=== PATIENT | female | born 1970 | race Caucasian/White ===

== ENCOUNTER 2019-12-12 16:44 | Inpatient (IN) | payer MEDICAID, SELFPAY ==
[~2019-12-12] VITALS: Ht 162.6 cm; Wt 67.6 kg
[~2019-12-12 16:44] MED LIST: CAR30 PO; HEPA500056 SQ; METO25TA PO; PANT40EC PO; PIPE1PDS26 IV; VANCOMYCIN
--- NOTE | 2019-12-12 16:44 | NUR ---
Patient BIBA CCT from [facility] - [place], [place], transferred to bed 10. RN evaluating patient at bedside.
[2019-12-12 16:50] VITALS: BP 143/76
[2019-12-12] MEDS ORDERED: cefTRIAXone 1,000 MG in DEXT 5% MINI-BAG PLUS 50 ML IV ONE (16:50)
--- NOTE | 2019-12-12 16:50 | NUR ---
Dr. Rodriguez is evaluating the patient at bedside.
[2019-12-12 16:52] VITALS: BP 143/78
--- NOTE | 2019-12-12 17:01 | NUR ---
49 y/o female biba from [facility] for abnormal labs. Per ems pt has WBC of 22.2. Afebrile, skin cool to the touch. Presents with bilateral upper extremity swelling. Trach to vent, placed on bedside monitor. medhx: DM, respiratory failure
[2019-12-12 17:25] LABS: HEMATOCRIT 27.4 % (36-48); HEMOGLOBIN 9.1 g/dL (12.0-16.0); MEAN CORPUSCULAR HEMOGLOBIN 28 pg (27-31); MEAN CORPUSCULAR HGB CONC 33 g/dL (33-37); MEAN CORPUSCULAR VOLUME 83.9 fL (80-94); PLATELET COUNT (AUTO) 605 K/uL (140-450); RED BLOOD CELL COUNT(AUTO) 3.27 MIL/uL (4.20-5.40); RED CELL DISTRIBUTION WIDTH 17.1 % (11.6-13.7); WHITE BLOOD COUNT (AUTO) 21.3 K/uL (4.8-10.8)
[2019-12-12 17:43] LABS: ALBUMIN 3.1 g/dL (3.4-5.0); ANION GAP 16.2 (8-16); CARBON DIOXIDE 26.1 mmol/L (21-32); CREATININE 0.6 mg/dL (0.6-1.3); POTASSIUM 4.3 mmol/L (3.5-5.1); TOTAL BILIRUBIN 0.5 mg/dL (0.0-1.0)
[2019-12-12] MEDS ORDERED: cefTRIAXone 1,000 MG VIAL ONE (17:48)
[2019-12-12 17:49] LABS: EOSINOPHILS % (MANUAL) 2 % (0-4); LYMPHOCYTES % (MANUAL) 12 % (20-46); MONOCYTES % (MANUAL) 2 % (5-12)
[2019-12-12] MEDS ORDERED: NACL 0.9% 1,000 ML IV ONE ×2 (17:50→18:05)
--- NOTE | 2019-12-12 17:58 | NUR ---
Pt had large green bowel movement. Diaper changed, repositioned for comfort, ornelas catheter placed. Remains on bedside monitor.
--- NOTE | 2019-12-12 17:59 | NUR ---
Rash noted to buttocks and lower and mid back, Dr Rodriguez made aware
[2019-12-12] MEDS ORDERED: NACL 0.9% 1,000 ML IV SCH (18:05)
--- NOTE | 2019-12-12 18:14 | NUR ---
Covid swab collected and taken to lab.
[2019-12-12] MEDS ORDERED: ONDANSETRON 4 MG/2 ML VIAL IM/IVP PRN (18:30)
[2019-12-12] MEDS ORDERED: LORazepam 2 MG/ML VIAL IM/IVP PRN (18:30)
[2019-12-12] MEDS ORDERED: MORPHINE SULFATE 2 MG/ML SYR IVP PRN (18:30)
[2019-12-12] MEDS ORDERED: HYDROcodone/APAP 5/325 MG 1 TAB TAB PO PRN (18:30)
[2019-12-12] MEDS ORDERED: ACETAMINOPHEN 325 MG TAB PO PRN (18:30)
[2019-12-12] MEDS ORDERED: DOCUSATE SODIUM 100 MG GELCAP PO PRN (18:30)
[2019-12-12] MEDS ORDERED: MAG SULF 2000 MG/WATER PREMIX 50 ML IV PRN (18:30)
[2019-12-12] MEDS ORDERED: POTASSIUM CHLORIDE 10 MEQ TABER PO PRN (18:30)
[2019-12-12] MEDS ORDERED: ZOLPIDEM 5 MG TAB PO PRN (18:30)
--- NOTE | 2019-12-12 19:13 | NUR ---
Report given to VLAD Corona. Transfer of care at this time
[2019-12-12 19:15] LABS: MAGNESIUM 2.1 mg/dL (1.8-2.4); PHOSPHORUS 4.8 mg/dL (2.5-4.9); THYROID STIMULATING HORMONE 1.85 uIU/mL (0.34-3.74)
--- NOTE | 2019-12-12 19:16 | NUR ---
Spoke to patients daughterMaryse. Have admitting nurse call for updates [phone]
--- NOTE | 2019-12-12 19:22 | NUR ---
received report from bonnie mg
--- NOTE | 2019-12-12 19:40 | NUR ---
PT REMAINS ON BEDSIDE MONITOR, IV FLUIDS STILL INFUSING, IV SITE PATENT, F/C DRAINING SMAILL [place] COLORED AND HAZY URINE. PT ON VENT.
--- NOTE | 2019-12-12 19:45 | NUR ---
URINE COLLECTED AND WALKED TO LAB
[2019-12-12 19:51] LABS: APPEARANCE,URINE HAZY (CLEAR); BILIRUBIN,URINE NEGATIVE (NEGATIVE); BLOOD, URINE 3+ (NEGATIVE); COLOR,URINE YELLOW (YELLOW); LEUKOCYTE ESTERASE ,URINE NEGATIVE (NEGATIVE); NITRITE, URINE NEGATIVE (NEGATIVE); PH,URINE 6.5 (5.0-9.0); UGLUCOSE NEGATIVE (NEGATIVE)
[2019-12-12 19:55] LABS: RBC,URINE 20-50 /HPF (0-5); WBC,URINE 0-5 /HPF (0-5)
--- NOTE | 2019-12-12 20:23 | NUR ---
PT RECEIVED ON SETTINGS DOCUMENTED FLOW WAS TITRATED TO 30 AND SRAVANTHI WELL VT 420-500 I:E AVG 1:2.3 AMBU AT BEDSIDE VENT PLUGGED INTO RED OUTLET WILL CONTINUE TO MONITOR
[2019-12-12] MEDS ORDERED: METOPROLOL 25 MG TAB PO SCH (21:00)
--- NOTE | 2019-12-12 21:10 | NUR ---
Patient will be admitted to care of DR MURPHY. Admited to TELE. Will go to room 123B. Belongings list completed. Report to JAN CHU.
[2019-12-12 21:15] VITALS: BP 135/95
--- NOTE | 2019-12-12 21:15 | NUR ---
RECEIVED PT AWAKE - APHASIC - TRACH TO VENT - ON VENTILATOR SET UP FROM THE ER , FROM [facility] , HX RESP. FAILURE . TRANSFER TO BED BY MANUAL LIFT W/ G TUBE FROM FACILITY , FC - INSERTED AT ER - DRAINING CLEAR U.O . IV SITE INTACT AND PATENT . ON TELE MONITOR - ST . SKIN INTACT BUT THERE IS REDNESS ON BUTTOCKS . SAFETY MEASURES IN PLACE . PLAN OF CARE DISCUSSED BUT POOR UNDERSTANDING DUE TO MENTAL STATUS . WILL CONT. TO MONITOR .
[2019-12-12] MEDS: NACL 0.9% 1,000 ML IV SCH (21:37)
--- NOTE | 2019-12-12 22:09 | NUR ---
LOPRESSOR 25/MG GIVEN THRU G TUBE ORDERED
[2019-12-12] MEDS: TRIAMCINOLONE 0.1% CRM 15 GM TUBE TP SCH (22:30)
--- NOTE | 2019-12-13 | NUR ---
MADE ROUNDS , NO S/SX OF ACUTE DISTRESS NOTED - ON TELE MONITOR - ST , BUT PT. APPEARS COMFORTABLY ON BED - FLACC O . WILL CONT. TO MONITOR .
[2019-12-13] MEDS ORDERED: HYDROcodone/APAP 5/325 MG 1 TAB TAB GT PRN (00:55)
--- NOTE | 2019-12-13 01:00 | NUR ---
RESUME G TUBE FEEDING - PER RECORD THE PT BEED ON ISO SOURCE 1.5 BUT THE NURSE CASH APPLICATIONS ANALYST GAVE TO OSMOLITE 1.5 ACCORDING TO HIM IT IS THE SAME ISO SOURCE - I BEGINS THE FEEDING TO 20 CC/HR - THEN ASSESS THE RESIDUE - THEN WILL INC. UNTIL IT REACH TO 60 CC/HR - IF WELL TOLERATED .
[2019-12-13] MEDS ORDERED: ZOLPIDEM 5 MG TAB GT PRN (01:05)
[2019-12-13] MEDS ORDERED: ACETAMINOPHEN 650 MG/20.3 ML UDC GT PRN (01:05)
[2019-12-13] MEDS ORDERED: POTASSIUM CHLORIDE 20% 40 MEQ/15 ML UDC GT PRN (01:40)
[2019-12-13] MEDS ORDERED: DOCUSATE 100 MG/10 ML UDC GT PRN (01:45)
--- NOTE | 2019-12-13 02:00 | NUR ---
SLEEPING - NO S/SX OF ACUTE DISTRESS NOTED - O2 SAT 99 %
[2019-12-13 04:00] VITALS: BP 145/78
--- NOTE | 2019-12-13 04:00 | NUR ---
MADE ROUNDS , THE TELEGRAPH EQUIPMENT MAINTAINER - ACCIDENTALLY PULL OUT THE FC - PT FC IS STILL IN PLACE . WILL CONT. TO MONITOR - OFF LOAD PRESSURE AREAS - TURN PT. ACCORDING TO PROTOCOL . WILL CONT. TO MONITOR.
[2019-12-13] MEDS: BLOOD GLUCOSE MONITORING 1 DEV DEV FS SCH ×6 (04:38→23:56)
[2019-12-13 05:10] LABS: BASOPHILS # (AUTO) 0.1 K/uL (0.00-0.22); BASOPHILS % (AUTO) 0.8 % (0.0-2.0); EOSINOPHILS # (AUTO) 0.5 K/uL (0-0.4); HEMATOCRIT 24.8 % (36-48); HEMOGLOBIN 8.2 g/dL (12.0-16.0); LYMPHOCYTES # (AUTO) 3.4 K/uL (2.5-16.5); LYMPHOCYTES % (AUTO) 20.9 % (20.5-51.1); MEAN CORPUSCULAR HEMOGLOBIN 28 pg (27-31); MEAN CORPUSCULAR HGB CONC 33 g/dL (33-37); MEAN CORPUSCULAR VOLUME 85.6 fL (80-94); MONOCYTES # (AUTO) 0.8 K/uL (0.8-1.0); MONOCYTES % (AUTO) 5.3 % (1.7-9.3); NEUTROPHILS # (AUTO) 11.3 K/uL (1.8-7.7); PLATELET COUNT (AUTO) 515 K/uL (140-450); RED CELL DISTRIBUTION WIDTH 16.7 % (11.6-13.7); WHITE BLOOD COUNT (AUTO) 16.1 K/uL (4.8-10.8)
[2019-12-13 05:22] LABS: ANION GAP 15.3 (8-16); CARBON DIOXIDE 24.6 mmol/L (21-32); CREATININE 0.4 mg/dL (0.6-1.3); POTASSIUM 3.9 mmol/L (3.5-5.1)
[2019-12-13 05:31] LABS: CHOL/HDL RATIO 5.8 (1-4.5); MAGNESIUM 1.8 mg/dL (1.8-2.4)
[2019-12-13] MEDS: NACL 0.9% 1,000 ML IV SCH ×3 (06:55→22:59)
[2019-12-13 07:17] VITALS: BP 141/63
--- NOTE | 2019-12-13 07:17 | NUR ---
REC'D PT ON [place]ES[place]E VENT SETTINGS AC 20 VT 350 PEEP 6 FIO2 28% ALARMS ON AND AUDIBLE AND BVM AT HOB AND VENT IS PLUGGED INTO RED OUTLET, SXN PT SMALL AMT OF YELLOW SECRETIONS, B\S ARE DIMINISHED BILATERALLY, PT IS TRACH WITH A SHILEY XLT 8 AND PT IS SLEEPING WITH NO SIGNS OF DISTRESS NOTED AT THIS TIME
--- NOTE | 2019-12-13 07:22 | NUR ---
ENDORSED TO AM SHIFT - PT -STABLE . G TUBE FEEDING - TOLERATED .
[2019-12-13 08:00] VITALS: BP 164/89
--- NOTE | 2019-12-13 08:54 | NUR ---
PATIENT HAS BEEN SCREENED AND CATEGORIZED HIGH NUTRITION RISK. PATIENT WILL BE SEEN WITHIN 1-2 DAYS OF ADMISSION. 12/13/19-12/14/[address]
[2019-12-13] MEDS ORDERED: AZITHROMYCIN 250 MG TAB PO SCH (09:00)
[2019-12-13] MEDS ORDERED: AZITHROMYCIN 250 MG TAB GT SCH (09:00)
[2019-12-13] MEDS ORDERED: DILTIAZEM 30 MG TAB PO SCH (09:00)
[2019-12-13] MEDS ORDERED: PANTOPRAZOLE 40 MG TABEC PO SCH (09:00)
[2019-12-13] MEDS: DILTIAZEM 30 MG TAB GT SCH ×3 (10:21→17:57)
[2019-12-13] MEDS: LANSOPRAZOLE 30 MG CAPDR GT SCH (10:22)
[2019-12-13] MEDS: METOPROLOL 25 MG TAB GT SCH ×2 (10:22→20:45)
[2019-12-13] MEDS: TRIAMCINOLONE 0.1% CRM 15 GM TUBE TP SCH ×2 (10:55→20:45)
--- NOTE | 2019-12-13 10:57 | NUR ---
ADMINISTERED SCHEDULED MEDS PER MD ORDER. MEDS ADMINISTERED VIA GTUBE. 40 ML RESIDUALS GIVEN BACK. PATIENT TOLERATED MEDICATION ADMINISTRATION. MEDICATION EDUCATION PROVIDED. REINFORCEMENT NEEDED. SAFETY MEASURES IN PLACE. WILL CONT TO MONITOR.
--- NOTE | 2019-12-13 11:18 | NUR ---
DC PLANNIN YRS OLD FEMALE PATIENT WAS ADMITTED FROM [facility] WITH A DX OF SIRES &CHRONIC RESPIRATORY FAILURE. PT HAS A HX OF ASTHMA, DM CRF, HYPOXIC BRAIN INJURY. CXR SHOWED MILD INTERSTITIAL EDEMA VERSUS INFILTRATE. RAPID COVID TEST NEGATIVE. URINE AND BLOOD CULTURE PENDING. ADMINISTERED IVF, ROCEPHIN AND AZITHROMYCIN IV ABX AND CONTINUED HOME MEDS. CONSULTED WITH PULWILL AND JACQUE. DC PLAN TO GO BACK TO [facility] WHEN STABLE CM TO FOLLOW Addendum: 12/14/19 at 1032 by Hanane Beltran CM DC CLINICAL LABORATORY AIDES TEACHER: PLAN FOR PATIENT TO DC THURSDAY OR THURSDAY. FAXED PATIENTS CLINICALS TO [facility]. WILL FOLLOW UP FOR A BED NUMBER. Addendum: 12/14/19 at 1109 by Ana Beaver CM DC PLANNING: SEEN BY ROBERT AND JACQUE. DR FONTENOT CHANGED ABX TO ZOSYN AND TAZOBACTAM ,AWAITING FOR SPUTUM, BLOOD AND URINE CULTURE. DC PLAN TO GO BACK TO [facility] WHEN STABLE Addendum: 12/14/19 at 1426 by Hanane Beltran CM [facility] CLINICAL LABORATORY AIDES TEACHER: RECEIVED A CALL FROM SAMREEN FROM [facility]. PATIENT IS ABLE TO RETURN HOWEVER THEY ARE WORKING ON ROOM CHANGES AT THIS TIME AND WILL HOPEFULLY HAVE AN AVAILABLE BED BY TOMORROW. WILL FOLLOW UP IN THE MORNING Addendum: 12/16/19 at 1108 by Hanane Beltran CM [facility] CLINICAL LABORATORY AIDES TEACHER: PATIENT WILL BE DISCHARGING BACK TO [facility] TODAY. SET UP TRANSPORTATION WITH [facility] FOR 2:00 PM. NOTIFIED VLAD WALLS. [facility] [address], [place] [id number] [address] CHUN Addendum: 12/16/19 at 1110 by Hanane Beltran CM [facility] CLINICAL LABORATORY AIDES TEACHER: NOTIFIED PATIENTS DAUGHTER JUNIOR SOTO [phone] THAT PATIENT WILL BE DISCHARGED TODAY.
[2019-12-13 12:00] VITALS: BP 108/82
--- NOTE | 2019-12-13 12:00 | NUR ---
PT BLOOD SUGAR IS 123. NO INSULIN NEEDED AT THIS TIME. WILL CONTINUE TO MONITOR
--- NOTE | 2019-12-13 13:30 | NUR ---
TOOK PATIENT TO CT WITH RT AND POST ADOPTION COORDINATOR AT BEDSIDE. RETURNED BACK SAFELY. PT TOLERATED WELL. SAFETY MEASURES IN PLACE. WILL CONTINUE TO MONITOR
--- NOTE | 2019-12-13 14:02 | NUR ---
ADMINISTERED SCHED MED PRESCRIBED PER MD ORDER. PT TOLERATED WELL. MEDICATION EDUCATION. PT APHASIC AND UNABLE TO VERBALIZE UNDERSTANDING. SAFETY MEASURES IN PLACE. WILL CONTINUE TO MONITOR
--- NOTE | 2019-12-13 14:28 | NUR ---
OBTAINED OCCULT BLOOD SPECIMEN FROM PATIENT PER STAT MD ORDER AND SENT TO LAB. SAFETY MEASURES IN PLACE. WILL CONT TO MONITOR.
--- NOTE | 2019-12-13 14:54 | NUR ---
RECOMMENDED TO DR. MURPHY TO CHANGE TUBE FEEDING TO OSMOLITE 1.5 @ 45 ML/HR WITH PROSOURCE. DR. MURPHY APPROVED RECOMMENDATION.
--- NOTE | 2019-12-13 15:04 | NUR ---
12/13/19 RD INITIAL ASSESSMENT COMPLETED PLEASE REFER TO NUTRITION ASSESSMENT UNDER CARE ACTIVITY FOR ESTIMATED NUTRITIONAL NEEDS. 1. RECOMMEND OSMOLITE 1.5 @ 45 ML/HR X 24 HR WITH PROSOURCE BID -THIS WILL PROVIDE 1740 KCAL AND 97 GM OF PROTEIN, WHICH MEETS 100% OF ESTIMATED KCAL AND PROTEIN NEEDS. 2. RECOMMEND FREE WATER FLUSH OF [address] TO FOLLOW-UP 2-3 DAYS, HIGH RISK ELIZ PLATA RD
[2019-12-13 16:00] VITALS: BP 131/68
--- NOTE | 2019-12-13 16:00 | NUR ---
PT BLOOD SUGAR IS 96. NO INSULIN NEEDED AT THIS TIME. WILL CONTINUE TO MONITOR
--- NOTE | 2019-12-13 16:14 | NUR ---
PATIENT HAD BM, WAS CLEANED, DRIED AND TURNED FROM LEFT SIDE TO RIGHT SIDE. PATIENT TOLERATED TX WELL. SAFETY MEASURES IN PLACE. WILL CONT TO MONITOR.
--- NOTE | 2019-12-13 16:26 | NUR ---
PATIENT FAMILY AT WINDOW VISITING PATIENT. PT TOLERATED WELL. SAFETY MEASURES IN PLACE. WILL CONTINUE TO MONITOR
--- NOTE | 2019-12-13 18:20 | NUR ---
ADMINISTERED MEDS PRESCRIBED BY MD ORDER. PATIENT TOLERATED WELL. SAFETY MEASURES IN PLACE. WILL CONT TO MONITOR.
--- NOTE | 2019-12-13 19:16 | NUR ---
ENDORSED AT BEDSIDE FOR CONTINUITY OF CARE. PT IS STABLE
--- NOTE | 2019-12-13 19:16 | NUR ---
RECEIVED PT AWAKE - TRACH TO VENT - O2 SAT 100 % , ON TELE MONITOR - ST , HOT TO TOUCH - WILL RE CHECK THE TEMP , W/ URINE MARIA CATH CONNECTING TO URINE BAG - CLEAR U.O . W/ REDNESS ON THE MIDDLE OF L AND R BUTTOCKS - BUT THE SKIN IS STILL INTACT . ON G TUBE FEEDING - WELL TOLERATED - SOFT ABD. SAFETY MEASURES IN PLACE . PLAN OF CARE DISCUSSED BUT POOR UNDERSTANDING DUE TO MENTAL STATUS . WILL CONT. TO MONITOR .
[2019-12-13 20:00] VITALS: BP 146/76
[2019-12-13] MEDS ORDERED: PIPERACILLIN/TAZOBACTAM 3.375 GM VIAL IV ONE (23:06)
[2019-12-13] MEDS: PIPERACILLIN/TAZOBACTAM 3.375 GM in DEXTROSE 5% 50 ML IV SCH (23:12)
[2019-12-14] VITALS (7 sets, daily range): BP systolic 134–171; BP diastolic 64–92
--- NOTE | 2019-12-14 | NUR ---
MADE ROUNDS , O2 SAT 100 % - FEVER ALREADY SUBSIDED , BUT THE PT. STILL TACHCARDIC , W/ AN EPISODE OF OF UP AND DOWN IN THE HR EVENTHOUGH PT. APPEARS CALM ON BED . WITH AN OCASSIONALLY PT HAD 90'S ON V/S MACHINE WHILE IN THE TELE MONITOR - ST TRACING , AND THE RR FLACTUATING TO 20'2 TO 30 HIGHEST IS 33 AND THE LOWEST IS 18 - BUT O2 SAT REMAINS 100 % . WILL INFORM DR. MG .
--- NOTE | 2019-12-14 00:30 | NUR ---
DR. MG TEXT BACK - HE SAID JUST MONITOR - NO FURTHER ORDER MADE . WILL CONT. TO MONITOR .
--- NOTE | 2019-12-14 02:00 | NUR ---
MADE ROUNDS , - ON TELE MONITOR - ST - O2 SAT 100 % . WILL CONT. TO MONITOR .
[2019-12-14] MEDS ORDERED: PIPERACILLIN/TAZOBACTAM 3.375 GM VIAL IV ONE (03:50)
[2019-12-14] MEDS ORDERED: CRUSHER, PILL MC ONE (03:54)
--- NOTE | 2019-12-14 04:00 | NUR ---
HAS MILD FEVER - TSB - WILL UPDAT DR. MG AND DR. FONTENOT . O2 SAT 100 %
[2019-12-14] MEDS: BLOOD GLUCOSE MONITORING 1 DEV DEV FS SCH ×5 (04:22→20:00)
[2019-12-14] MEDS: NACL 0.9% 1,000 ML IV SCH ×2 (04:50→16:35)
[2019-12-14 05:07] LABS: BASOPHILS # (AUTO) 0.1 K/uL (0.00-0.22); EOSINOPHILS # (AUTO) 0.9 K/uL (0-0.4); EOSINOPHILS % (AUTO) 7.6 % (0.0-4.0); HEMATOCRIT 21.1 % (36-48); LYMPHOCYTES # (AUTO) 2.6 K/uL (2.5-16.5); LYMPHOCYTES % (AUTO) 21.7 % (20.5-51.1); MEAN CORPUSCULAR HEMOGLOBIN 29 pg (27-31); MEAN CORPUSCULAR HGB CONC 33 g/dL (33-37); MEAN CORPUSCULAR VOLUME 85.8 fL (80-94); MONOCYTES # (AUTO) 0.8 K/uL (0.8-1.0); MONOCYTES % (AUTO) 6.5 % (1.7-9.3); NEUTROPHILS # (AUTO) 7.4 K/uL (1.8-7.7); NEUTROPHILS % (AUTO) 63.2 % (42.2-75.2); PLATELET COUNT (AUTO) 444 K/uL (140-450); RED BLOOD CELL COUNT(AUTO) 2.45 MIL/uL (4.20-5.40); RED CELL DISTRIBUTION WIDTH 16.1 % (11.6-13.7); WHITE BLOOD COUNT (AUTO) 11.8 K/uL (4.8-10.8)
[2019-12-14] MEDS: PIPERACILLIN/TAZOBACTAM 3.375 GM in DEXTROSE 5% 50 ML IV SCH ×3 (05:17→16:35)
[2019-12-14 05:35] LABS: ANION GAP 14.1 (8-16); CARBON DIOXIDE 23.6 mmol/L (21-32); CREATININE 0.5 mg/dL (0.6-1.3); POTASSIUM 3.7 mmol/L (3.5-5.1)
--- NOTE | 2019-12-14 05:36 | NUR ---
REFER TO DR. MG - LATEST HGB. 7 - BP 134/76 - HR 100'S , W/ MILD FEVER , W/ CLAER U.O - WILL WAIT FURTHER ORDER ..
[2019-12-14 05:40] LABS: MAGNESIUM 1.6 mg/dL (1.8-2.4); PHOSPHORUS 4.1 mg/dL (2.5-4.9)
--- NOTE | 2019-12-14 07:31 | NUR ---
ASSUMED CARE AND REC'D REPORT FROM NIGHT NURSE. PT ON TRACH TO VENT CARE.
--- NOTE | 2019-12-14 07:35 | NUR ---
ENDORSED TO AM SHIFT - PT - STABLE . ENDORSE TO NURSE BROOKLYNN I TEXTED DR. MG ABOUT THE HGB . OF 7 - SHE HAVE TO WAIT FURTHER ORDERS FROM DR. MG . FF UP FLU VACCINE FROM [facility] - ENDORSED .
--- NOTE | 2019-12-14 08:00 | NUR ---
BLOOD GLUCOSE 108- NO INSULIN COVERAGE NEEDED. CALL LIGHT WITHIN REACH. NO S/S OF RESPIRATORY DISTRESS OR DISCOMFORT NOTED AT THIS TIME. WILL CONTINUE TO MONITOR.
[2019-12-14 08:12] LABS: T4 (THYROXINE) 8.9 ug/dL (4.5-12.0)
[2019-12-14] MEDS: DILTIAZEM 30 MG TAB GT SCH ×3 (08:56→16:35)
[2019-12-14] MEDS: LANSOPRAZOLE 30 MG CAPDR GT SCH (08:56)
[2019-12-14] MEDS: METOPROLOL 25 MG TAB GT SCH ×2 (08:56→21:10)
--- NOTE | 2019-12-14 08:58 | NUR ---
ZERO RESIDUAL ON G-TUBE FEEDING. SCHEDULED MEDICATIONS GIVEN AND TOLERATED WELL. CALL LIGHT WITHIN REACH. NO S/S OF RESPIRATORY DISTRESS OR DISCOMFORT NOTED AT THIS TIME. WILL CONTINUE TO MONITOR.
[2019-12-14] MEDS: TRIAMCINOLONE 0.1% CRM 15 GM TUBE TP SCH ×2 (08:59→21:16)
[2019-12-14 09:07] LABS: FOLIC ACID 9.4 ng/mL (>3.0)
--- NOTE | 2019-12-14 10:28 | NUR ---
MAGNESIUM 1.6- MAG RIDDER GIVEN AND TOLERATED WELL. CALL LIGHT WITHIN REACH. NO S/S OF RESPIRATORY DISTRESS OR DISCOMFORT NOTED AT THIS TIME. WILL CONTINUE TO MONITOR.
--- NOTE | 2019-12-14 11:00 | NUR ---
PT SLEEPING IN BED. CALL LIGHT WITHIN REACH. NO S/S OF RESPIRATORY DISTRESS OR DISCOMFORT NOTED AT THIS TIME. WILL CONTINUE TO MONITOR.
--- NOTE | 2019-12-14 12:25 | NUR ---
BLOOD GLUCOSE 104-NO INSULIN COVERAGE GIVEN. SCHEDULED MEDICATION ZOSYN GIVEN AND TOLERATED WELL. CALL LIGHT WITHIN REACH. NO S/S OF RESPIRATORY DISTRESS OR DISCOMFORT NOTED AT THIS TIME. WILL CONTINUE TO MONITOR.
--- NOTE | 2019-12-14 12:53 | NUR ---
SCHEDULED MEDICATION CARDIZEM GIVEN AND TOLERATED WELL. CALL LIGHT WITHIN REACH. NO S/S OF RESPIRATORY DISTRESS OR DISCOMFORT NOTED AT THIS TIME. WILL CONTINUE TO MONITOR.
--- NOTE | 2019-12-14 15:00 | NUR ---
PT SLEEPING IN BED. CALL LIGHT WITHIN REACH. NO S/S OF RESPIRATORY DISTRESS OR DISCOMFORT NOTED AT THIS TIME. WILL CONTINUE TO MONITOR.
--- NOTE | 2019-12-14 16:00 | NUR ---
BLOOD GLUCOSE 106- NO INSULIN COVERAGE GIVEN. PT TOLERATED WELL. CALL LIGHT WITHIN REACH. NO S/S OF RESPIRATORY DISTRESS OR DISCOMFORT NOTED AT THIS TIME. WILL CONTINUE TO MONITOR.
--- NOTE | 2019-12-14 16:30 | NUR ---
PT WAS ROTATED TO SUPINE. FINGER STICK GLUCOSE LEVEL CHECKED. PT RESTING
--- NOTE | 2019-12-14 16:35 | NUR ---
SCHEDULED MEDICATION CARDIZEM AND ZOSYN GIVEN AND TOLERATED WELL. CALL LIGHT WITHIN REACH. NO S/S OF RESPIRATORY DISTRESS OR DISCOMFORT NOTED AT THIS TIME. WILL CONTINUE TO MONITOR.
--- NOTE | 2019-12-14 18:40 | NUR ---
NEW TUBE FEEDING HUNG AND PT TOLERATED WELL. CALL LIGHT WITHIN REACH. NO S/S OF RESPIRATORY DISTRESS OR DISCOMFORT NOTED AT THIS TIME. WILL CONTINUE TO MONITOR.
--- NOTE | 2019-12-14 19:04 | NUR ---
RECEIVED REPORT FROM AM SHIFT. PT SEEN AND ASSESSED. PT IS TRACH TO VENT WITH SHILEY SIZE 8 XLT AND SECURED WITH TRACH TIE. PT IS ON VENT SETTINGS AC/VC RR 20bpm, Vt 350cc, PEEP 6 cmH20, AND FiO2 28% WITH SPO2 OF 100%. VENT IS PLUGGED IN RED OUTLET AND VENT ALARMS SET AND AUDIBLE TO ENVIRONMENT. AUSCULTATION REVEALS BILATERAL RALES BREATH SOUNDS. SUCTIONED SCANT AMOUNT OF WHITE SECRETIONS FROM TRACH TUBE. AIRWAY IS PATENT. PT IS IN NO APPARENT RESPIRATORY DISTRESS AT THIS TIME. WILL CONTINUE TO MONITOR PT.
--- NOTE | 2019-12-14 19:24 | NUR ---
ENDORSED PT CARE TO SHIPBOARD INTELLIGENCE ANALYST NURSE. PT IN STABLE CONDITION AT THIS TIME.
--- NOTE | 2019-12-14 19:25 | NUR ---
RECEIVED BEDSIDE REPORT FROM AM NURSE. PT TRACH TO VENT. TOLERATING VENT SETTINGS WELL A/C VC FIO2 28%, VT 350, RATE 20, PEEP 6. O2 SAT 97%. PT REMAINS IN STABLE CONDITION, NO ACUTE DISTRESS, NO SOB NOTED, RESPIRATIONS EVEN AND UNLABORED. NO S/S OF PAIN AND DISCOMFORT AT THIS TIME. IV SITE PATENT AND FLUSHED L HAND RUNNING NS @100CC/HR. GTUBE IN PLACED W/ ENTERAL FEEDING OF OSMOLITE 1.5 @45CC/HR, FREE WATER FLUSHING OF 150 CC Q4H. MARIA CATH IN PLACED, DRAINING CLEAR YELLOW URINE. BED IN LOWEST POSITION. SIDE RAILS UPX2. SAFETY MEASURES IN PLACED. CALL LIGHT WITHIN REACH. WILL CONTINUE TO MONITOR.
--- NOTE | 2019-12-14 20:00 | NUR ---
CHECKED BLOOD GLUCOSE, 102 MG/DL NO INSULIN COVERAGE NEEDED.
--- NOTE | 2019-12-14 21:16 | NUR ---
DUE MEDS GIVEN, TOLERATED WELL. GTUBE INTACT AND PATENT, NO RESIDUALS NOTED. TOLERATING FEEDING WELL.
--- NOTE | 2019-12-14 23:16 | NUR ---
CHECKED ON PT, SLEEPING COMFORTABLY IN BED. ORAL CARE DONE AND SUCTIONED SECRETIONS,TOLERATED WELL.
[2019-12-15] VITALS: BP 138/73
--- NOTE | 2019-12-15 00:16 | NUR ---
BLOOD SUGAR CHECKED- 115MG/DL. VS STABLE. NOTED TEMP OF 99.5, COOLING MEASURES DONE. SAFETY MEASURES IN PLACED. WILL CONTINUE TO MONITOR.
[2019-12-15] MEDS: PIPERACILLIN/TAZOBACTAM 3.375 GM in DEXTROSE 5% 50 ML IV SCH ×4 (00:50→18:00)
[2019-12-15] MEDS: BLOOD GLUCOSE MONITORING 1 DEV DEV FS SCH ×6 (00:55→20:49)
--- NOTE | 2019-12-15 02:16 | NUR ---
PT SLEEPING COMFORTABLY IN BED, NO ACUTE DISTRESS, NO SOB NOTED. VENT SETTINGS TOLERATED WELL, SATTING 100%. BED IN LOWEST POSITION. SAFETY MEASURES IN PLACED. CALL LIGHT WITHIN REACH. WILL CONTINUE TO MONITOR.
[2019-12-15 04:00] VITALS: BP 132/75
--- NOTE | 2019-12-15 04:16 | NUR ---
VS WITHIN NORMAL LIMITS. NOTED TEMP OF 99.3 F, COOLING MEASURES DONE. BS CHECKED 101 MG/DL, NO INSULIN COVERAGE NEEDED. SAFETY MEASURES IN PLACED. CALL LIGHT WITHIN REACH. WILL CONTINUE TO MONITOR.
[2019-12-15 04:57] LABS: BASOPHILS # (AUTO) 0.2 K/uL (0.00-0.22); BASOPHILS % (AUTO) 1.3 % (0.0-2.0); EOSINOPHILS # (AUTO) 1.4 K/uL (0-0.4); EOSINOPHILS % (AUTO) 11.2 % (0.0-4.0); HEMATOCRIT 23.1 % (36-48); HEMOGLOBIN 7.5 g/dL (12.0-16.0); LYMPHOCYTES # (AUTO) 2.4 K/uL (2.5-16.5); LYMPHOCYTES % (AUTO) 19.7 % (20.5-51.1); MEAN CORPUSCULAR HEMOGLOBIN 28 pg (27-31); MEAN CORPUSCULAR HGB CONC 33 g/dL (33-37); MEAN CORPUSCULAR VOLUME 85.1 fL (80-94); MONOCYTES # (AUTO) 0.7 K/uL (0.8-1.0); MONOCYTES % (AUTO) 5.4 % (1.7-9.3); NEUTROPHILS # (AUTO) 7.7 K/uL (1.8-7.7); NEUTROPHILS % (AUTO) 62.4 % (42.2-75.2); PLATELET COUNT (AUTO) 497 K/uL (140-450); RED BLOOD CELL COUNT(AUTO) 2.71 MIL/uL (4.20-5.40); RED CELL DISTRIBUTION WIDTH 16.5 % (11.6-13.7); WHITE BLOOD COUNT (AUTO) 12.3 K/uL (4.8-10.8)
[2019-12-15] MEDS: NACL 0.9% 1,000 ML IV SCH ×2 (04:57→14:59)
--- NOTE | 2019-12-15 05:38 | NUR ---
TRACH CARE COMPLETED. AIRWAY IS PATENT. PT IS IN NO RESPIRATORY DISTRESS AT THIS TIME. PT STILL REMAINS ON VENT SUPPORT. WILL CONTINUE TO MONITOR PT.
[2019-12-15 06:12] LABS: ANION GAP 14.2 (8-16); CARBON DIOXIDE 23.6 mmol/L (21-32); CREATININE 0.5 mg/dL (0.6-1.3); PHOSPHORUS 4.7 mg/dL (2.5-4.9); POTASSIUM 3.8 mmol/L (3.5-5.1)
--- NOTE | 2019-12-15 06:16 | NUR ---
PT AWAKE IN BED, NO APPARENT DISTRESS, NO SOB NOTED. NOTED X2 BM DURING SHIFT. MARIA OUTPUT OF 1000CC. SAFETY MEASURES IN PLACED. CALL LIGHT WITHIN REACH.WILL CONTINUE TO MONITOR.
--- NOTE | 2019-12-15 07:15 | NUR ---
ENDORSED PT TO AM NURSE IN STABLE CONDITION FOR CONTINUITY OF CARE.
--- NOTE | 2019-12-15 07:20 | NUR ---
RECEIVED PT FROM ACTIVITIES COORDINATOR NURSE, PT IS RESTING IN BED, 20 G IV NOTED TO LHAND @ 100ML/HR NS, MARIA PRESENT W/200 ML CLEAR YELLOW URINE NOTED, PT IS ON TRACH TO VENT, RT AT BEDSIDE PROVIDING SUCTIONING, O2 SAT 100%, FI02 28%, VT 350, RR 20, FLOW 60, PEEP 6 PMAX 45, NO SIGNS OF DISTRESS NOTED, SAFETY & FALL PRECAUTIONS IN PLACE, WILL CONTINUE TO MONITOR
[2019-12-15 08:00] VITALS: BP 146/78
[2019-12-15] MEDS: MUPIROCIN CA NASAL 2% 1GM TUBE NS SCH ×2 (10:05→10:19)
[2019-12-15] MEDS: METOPROLOL 25 MG TAB GT SCH ×2 (10:06→20:49)
[2019-12-15] MEDS: DILTIAZEM 30 MG TAB GT SCH ×3 (10:06→16:35)
[2019-12-15] MEDS: LANSOPRAZOLE 30 MG CAPDR GT SCH (10:06)
--- NOTE | 2019-12-15 10:06 | NUR ---
PT WAS GIVEN THE SCHEDULED AM MEDICATIONS VIA G-TUBE, RESIDUAL NOTED IS 5ML, CRUSHED, BP IS 146/78, PULSE IS 112, MANUALLY, SATURATING AT 100%, G-TUBE SITE WAS CHECKED AND REINFORCED WITH DRESSING, CINDY VALVE CHANGED AND DATED, NO SIGN OF DISTRESS NOTED AND WILL MONITOR PT.
[2019-12-15] MEDS: CHLORHEXADINE GLUC 2% CLOTH TP SCH (10:08)
[2019-12-15] MEDS: TRIAMCINOLONE 0.1% CRM 15 GM TUBE TP SCH ×2 (10:08→20:53)
[2019-12-15 12:00] VITALS: BP 159/83
--- NOTE | 2019-12-15 13:15 | NUR ---
DR. MG WAS INFORMED THAT PT'S IV LINE WAS INFILTRATED AND RE-INSERTION WAS UNSUCCESSFUL, DR. MG MADE A TELEPHONE ORDER TO INSERT PICC/MIDLINE. TELEPHONE ORDER VERIFIED AND READ BACK AND WILL BE CARRIED OUT.
--- NOTE | 2019-12-15 13:21 | NUR ---
OBTAINED A TELEPHONE CONSENT FROM PT'S DAUGHTER, JUNIOR GUAN, FOR A PICC LINE INSERTION, WILL NOTIFY PICC LINE NURSE.
--- NOTE | 2019-12-15 13:26 | NUR ---
CONTACTED VANNESSA FROM PICC LINE SERVICE REGARDING THE PICC LINE ORDER. ISAURA PICC LINE RN WILL CALL FOR ETA. RN ASSIGNED, MADE AWARE.
--- NOTE | 2019-12-15 13:28 | NUR ---
ARLINE JADE CALLED AND SPOKE TO PICC LINE NURSE, VANNESSA, WILL CALL FOR ETA.
--- NOTE | 2019-12-15 14:03 | NUR ---
PT WAS GIVEN THE SCHEDULED CARDIZEM, BP IS 159/83, PULSE IS 103, O2 SATURATION IS AT 100%, RESIDUAL NOTED IS 30ML. WILL MONITOR PT.
--- NOTE | 2019-12-15 14:05 | NUR ---
12/15/19 FOLLOW UP COMPLETED PLEASE REFER TO NUTRITION ASSESSMENT UNDER CARE ACTIVITY FOR ESTIMATED NUTRITIONAL NEEDS. 1. CONTINUE OSMOLITE 1.5 @ 45 ML/HR X 24 HR WITH PROSOURCE BID -THIS WILL PROVIDE 1740 KCAL AND 97 GM OF PROTEIN, WHICH MEETS 100% OF ESTIMATED KCAL AND PROTEIN NEEDS. 2. CONTINUE FREE WATER FLUSH OF [address] TO FOLLOW-UP 2-3 DAYS, HIGH RISK ELIZ PLATA RD
[2019-12-15 16:00] VITALS: BP 136/70
--- NOTE | 2019-12-15 16:35 | NUR ---
PT WAS GIVEN THE SCHEDULED MEDICATIONS, RESIDUAL NOTED IS 30ML, BP IS 134/70, PULSE IS 104, O2 SAT IS 98%, NO SIGN OF DISTRESS NOTED AND WILL MONITOR PT.
--- NOTE | 2019-12-15 18:15 | NUR ---
CALLED DR. MG AND INFORMED MD THAT AN IV LINE WAS SUCCESSFULLY INSERTED TO PT, DR. MG SAID TO HOLD OFF FOR THE PICC LINE INSERTION FOR NOW SINCE PT HAS A WORKING IV LINE ALREADY. TELEPHONE ORDER READ BACK AND VERIFIED AND WILL BE CARRIED OUT.
--- NOTE | 2019-12-15 18:20 | NUR ---
CALLED PICC LINE NURSEERIN AT [phone] AND LEFT A MESSAGE IN VOICEMAIL THAT PICC LINE INSERTION WAS HOLD OFF PER DR. MG, BECAUSE A PERIPHERAL LINE WAS INSERTED.
--- NOTE | 2019-12-15 19:10 | NUR ---
RECEIVED PATIENT FROM DAY SHIFT ON AX 20,VT 350, PEEP 6, 28 PERCENT FIO2. VENT PLUGGED INTO RED OUTLET. BMV AT BEDSIDE. ALARMS SET. TRACH SECURED AND INTACT. PATENT AIRWAY. NO RESPIRATORY DISTRESS NOTED. WILL CONTINUE TO MONITOR IN CHANGES OF RESPIRATORY STATUS.
--- NOTE | 2019-12-15 19:44 | NUR ---
ENDORSED PT TO RIBBON HANKING MACHINE OPERATOR NURSE FOR CONTINUITY OF CARE, SATURATING AT 98%, PT IS STABLE AT THIS TIME.
--- NOTE | 2019-12-15 19:47 | NUR ---
RECEIVED PT IN STABLE CONDITION FROM M NURSE FOR CONTINUITY OF CARE. TRACH TO VENT . TELE PT. WITH NO SIGNS OF ANY RESPIRATORY DISTRESS NOTED. O2 SAT 100 % . BEDBOUND. WITH IVF INFUSING WELL ON RT HAND G#22. BOTH UPPER ARM AND HANDS SWOLLEN. GT FEEDING TOLERATING WELL. FOELY CATHETER DRAINING TO CLEAR YELLOW URINE. FREQ ROUNDS NEEDED. ON CONTACT ISOLATION FOR MRSA NARES. TX STARTED TODAY. BED ON LOWEST POSITION. SIDE RAILS UP X2. CALL LIGHT PLACED WITHIN REACH. WILL CONTINUE TO MONITOR.
[2019-12-15 20:00] VITALS: BP 129/76
--- NOTE | 2019-12-15 20:30 | NUR ---
DUE MEDS GIVEN PER GT. NO RESIDUAL NOTED ON THE GT FEEDING. TOLERATING WELL. BLOOD SUGAR WAS CHECKED RESULT 99. WILL CONTINUE TO MONITOR.
--- NOTE | 2019-12-15 21:45 | NUR ---
VENT ALARM ON. CHECKED ON PT. SUCTIONED THROUGH THE TRACH AND MOUHT. OBTAINED ONLT SCANTY WHITISH SECRETIONS. O2 SAT REMAIN 100% .
--- NOTE | 2019-12-15 22:30 | NUR ---
HAD A SMALL SOFT BM . CLEANED AND KEPT DRY. SKIN ASSESSES ON BUTTOCKS AND BACK. NO REDNESS NOTED AND BACK HAS SKIN DRYNESS. REPOSITIONED FOR COMFORT. SUCTIONED NEEDED THROUGH MOUTH AND TRACH. O2 SAT 99%.
[2019-12-16] VITALS: BP 126/87
[2019-12-16] MEDS: PIPERACILLIN/TAZOBACTAM 3.375 GM in DEXTROSE 5% 50 ML IV SCH ×3 (00:21→11:31)
[2019-12-16] MEDS: BLOOD GLUCOSE MONITORING 1 DEV DEV FS SCH ×4 (00:25→11:36)
--- NOTE | 2019-12-16 00:30 | NUR ---
VENT ALARM GOING ON. CHECKED ON PT. CHINEDU RT ALSO CAME . PULSE OX PROBE CHANGED FOR IT WAS LOOSE. O2 SAT BACK TO 100 %.
[2019-12-16] MEDS: NACL 0.9% 1,000 ML IV SCH ×2 (00:59→11:30)
--- NOTE | 2019-12-16 02:00 | NUR ---
CHECKED ON PT. ASLEEP. NO DISTRESS NOTED. O2 SAT 100 %. WILL CONTINUE TO MONITOR.
[2019-12-16 03:59] VITALS: BP 129/58
--- NOTE | 2019-12-16 04:00 | NUR ---
CHECKED ON PT SLEEPING. O2 SAT 99%. BLOOD SUAGR CHECKED RESULT 102. NO COVERAGE NEEDED. NO DISTRESS NOTED. WILL CONTINUE TO MONITOR.
--- NOTE | 2019-12-16 05:00 | NUR ---
HAD ANOTHER SMALL AMOUNT SOFT BM. CLEANED AND KEPT DRY. REPOSITIONED FOR COMFORT
[2019-12-16 05:36] LABS: BASOPHILS # (AUTO) 0.1 K/uL (0.00-0.22); BASOPHILS % (AUTO) 1.3 % (0.0-2.0); EOSINOPHILS # (AUTO) 1.3 K/uL (0-0.4); EOSINOPHILS % (AUTO) 11.7 % (0.0-4.0); HEMATOCRIT 21.1 % (36-48); HEMOGLOBIN 7.1 g/dL (12.0-16.0); LYMPHOCYTES # (AUTO) 2.2 K/uL (2.5-16.5); LYMPHOCYTES % (AUTO) 19.7 % (20.5-51.1); MEAN CORPUSCULAR HEMOGLOBIN 29 pg (27-31); MEAN CORPUSCULAR HGB CONC 34 g/dL (33-37); MEAN CORPUSCULAR VOLUME 85.4 fL (80-94); MONOCYTES # (AUTO) 0.7 K/uL (0.8-1.0); MONOCYTES % (AUTO) 6.8 % (1.7-9.3); NEUTROPHILS # (AUTO) 6.7 K/uL (1.8-7.7); NEUTROPHILS % (AUTO) 60.5 % (42.2-75.2); PLATELET COUNT (AUTO) 489 K/uL (140-450); RED BLOOD CELL COUNT(AUTO) 2.47 MIL/uL (4.20-5.40); RED CELL DISTRIBUTION WIDTH 16.7 % (11.6-13.7); WHITE BLOOD COUNT (AUTO) 11.1 K/uL (4.8-10.8)
[2019-12-16 05:37] LABS: ANION GAP 13.2 (8-16); CARBON DIOXIDE 24.6 mmol/L (21-32); CREATININE 0.5 mg/dL (0.6-1.3); POTASSIUM 3.8 mmol/L (3.5-5.1)
--- NOTE | 2019-12-16 06:00 | NUR ---
ZOSYN IV GIVEN ORDERED.
[2019-12-16 06:18] LABS: MAGNESIUM 1.8 mg/dL (1.8-2.4); PHOSPHORUS 4.7 mg/dL (2.5-4.9)
--- NOTE | 2019-12-16 07:35 | NUR ---
ENDORSED PT IN STABLE CONDITION TO AM NURSE.
--- NOTE | 2019-12-16 07:37 | NUR ---
RECEIVED REPORT FROM NIGHT NURSE PATIENT IS SLEEPING APHASIC, TRACH TO VENT AND TUBE FEEDING OSMOLITE AT 45 AND WATER FLUSH 150Q4H, BEDBOUND WITH MARIA CATHETER, MRSA NARE POSITIVE, IV SITES INTACT AND PATENT ON RIGHT HAND, REDNESS ON BUTTOCKS, SUCTION MOUTH PRN,SAFETY MEASURES IN PLACE AND CALL LIGHT WITHIN REACH. WILL CONTINUE TO MONITOR.
[2019-12-16 08:00] VITALS: BP 153/78
[2019-12-16] MEDS: LANSOPRAZOLE 30 MG CAPDR GT SCH (09:33)
[2019-12-16] MEDS: DILTIAZEM 30 MG TAB GT SCH ×2 (09:33→13:18)
--- NOTE | 2019-12-16 09:33 | NUR ---
MEDICATION DUE GIVEN CHECK VITAL SIGNS PRIOR TO BP MEDICATION BP 153/78 ND 125 AND BLOOD SUGAR AT 100 MG/DL NO INSULIN COVERAGE. SUCTIONED PRN ON THE MOUTH. NO DISTRESS NOTED. SAFETY MEASURES IN PLACE CALL LIGHT WITHIN REACH WILL CONTINUE TO MONITOR.
[2019-12-16] MEDS: MUPIROCIN CA NASAL 2% 1GM TUBE NS SCH (09:34)
[2019-12-16] MEDS: METOPROLOL 25 MG TAB GT SCH (09:34)
[2019-12-16] MEDS: CHLORHEXADINE GLUC 2% CLOTH TP SCH (09:35)
[2019-12-16] MEDS: TRIAMCINOLONE 0.1% CRM 15 GM TUBE TP SCH (09:36)
--- NOTE | 2019-12-16 09:50 | NUR ---
WOUND CARE NOTE: PT HAS NO OPEN ACTIVE WOUND, -ORAL MEMBRANE/LIPS PINK MOIST, INTACT,NO OPEN WOUNDS -TRACH SITE ROBERT STOMA SKIN DRY AND CLEAN. SKIN INTACT. - GT SITE ROBERT STOMA WITH SKIN INTACT. -SKIN REDNESS PERINEUM FROM IAD. -LEFT HAND +1 EDEMA WITH DORSAL HAND AND WRIST MULTIPLE PIN POINTS INTACT CLEAR FLUIDS BLISTERS,SURROUNDING SKIN INTACT. RECOMMENDATION: -APPLY BARRIER CREAM TO PERINEUM BID AND PRN -APPLY VERSATEL DRESSING TO LEFT HAND /WRIST TODAY AND CHANGE Q 5 DAYS AND PRN IF SOILING -APPLY HEEL PROTECTORS TO BOTH HEELS AT ALL TIMES -OFFLOAD BILATERAL HEELS BY PLACING PILLOWS UNDER CALVES UNLESS OTHERWISE CONTRAINDICATED -PRESSURE REDISTRIBUTION SURFACE THERAPY -TURN AND REPOSITION Q2H, OFFLOAD SACRALCOCCYX AND BUTTOCKS BY TURNING RIGHT AND LEFT -CONTINUE TO FOLLOW RD RECOMMENDATIONS ALL ABOVE RECOMMENDATIONS DISCUSSED WITH PRIMARY RN.
[2019-12-16] MEDS ORDERED: IV Zosyn IV (10:04)
--- NOTE | 2019-12-16 10:30 | NUR ---
WOUND ASSESSMENT COMPLETE AND APPLIED VERSATEL ON THE LEFT WRIST AND LEFT HAND.
[2019-12-16] MEDS ORDERED: FERR325E14 PO (11:02)
--- NOTE | 2019-12-16 11:50 | NUR ---
BLOOD SUGAR MONITORING DONE BLOOS SUGAR AT 98MG/DL NO INSULIN COVERAGE. AND IV ZOSYN GIVEN.
[2019-12-16 12:00] VITALS: BP 139/63
--- NOTE | 2019-12-16 12:12 | NUR ---
CALLED [facility] AT [phone] AND GAVE REPORT TO NURSE EVANGELINA CHU PATIENT IS BEING TRANSFERRED TO [facility] [address] UNDER THE CARE OF DR CHUN. PATIENTS DAUGHTER ABNER VARELA.
--- NOTE | 2019-12-16 14:30 | NUR ---
DISCHARGED INSTRUCTIONS GIVEN TO MARIAH AND JAN HUTCHINSON RN. INSTRUCTIONS GIVEN TO NURSE FOR PATIENT FOLLOW UP AND IV MEDICATIONS. REMOVED TELEMONITOR AND RETURNED TO COMPENSATION ADVISOR, IV SITES INTACT AND COMLETE NO BLEEDING, PATIENT IS TRACH TO VENT. TUBE FEEDING REMOVED, SUCTIONED PATIENT BEFORE TRANSFER. INFORMED THE DAUGHTER ABOUT THE TRANSFER. PATIENT TOOK ALL HER BELONGINGS, PATIENT IS BEING DISCHARGE TO SNF ACCOMPANIED BY MARIAH,PT IS STABLE.
== END 2019-12-16 14:30 | DRG 720 ==
LOC: MED 16:44 → MTU 18:12
PROC: 5A1945Z Respiratory Ventilation, 24-96 Consecutive Hours (ICD-10-PCS; principal; 2019-12-12)
DX: A41.9 Sepsis, unspecified organism (principal); J69.0 Pneumonitis due to inhalation of food and vomit; J96.20 Acute and chronic respiratory failure, unspecified whether with hypoxia or hypercapnia; R13.10 Dysphagia, unspecified; Z99.11 Dependence on respirator [ventilator] status; Z93.1 Gastrostomy status; E11.9 Type 2 diabetes mellitus without complications; E78.5 Hyperlipidemia, unspecified; J45.909 Unspecified asthma, uncomplicated; Z20.828 Contact with and (suspected) exposure to other viral communicable diseases; Z93.0 Tracheostomy status; E66.9 Obesity, unspecified; R31.9 Hematuria, unspecified; D64.9 Anemia, unspecified; E86.0 Dehydration; N20.0 Calculus of kidney; E46 Unspecified protein-calorie malnutrition; Z68.25 Body mass index [BMI] 25.0-25.9, adult
CPT/HCPCS: 36415; 51702; 71045; 71250; 76770; 80048; 80053; 81001; 82150; 82272; 82607; 82728; 82746; 82948; 83036; 83540; 83605; 83690; 83735; 83880; 84100; 84134; 84436; 84443; 84484; 85025; 85045; 85610; 85730; 87040; 87070; 87081; 87086; 87205; 87804; 93005; 94003; 96361; 96365; 99285; J0696; J1644; J2543; J3475; J7030; J7060; Q0092